=== PATIENT | female | born 1960 | race Caucasian/White ===

== ENCOUNTER 2020-07-02 12:46 | Emergency (ER) | payer MEDICAID ==
[~2020-07-02] VITALS: Ht 157.5 cm; Wt 74.8 kg
--- NOTE | 2020-07-02 12:50 | NUR ---
PATIENT AMBULATED WITH STEADY GAIT TO BED 1.
[2020-07-02 12:57] VITALS: BP 109/71
--- NOTE | 2020-07-02 12:57 | NUR ---
60 Y/O F C/C ABDOMINAL PAIN RUQ TO LUQ, PRESSURE SENSATION, 9/10 PAIN, EATING EXACERBATES, NOTHING ALLEVIATES X 1 DAY. DENIES DYSURIA,NVD. PT NKA. HX GLAUCOMA. NO SX. RX EYE DROPS UNABLE TO RECALL. PT PRESENTS VSS,EUPNIC,AMBULATORY,A/OX4. SIDE RAIL X1.
--- NOTE | 2020-07-02 13:23 | NUR ---
Dr. Russo is evaluating pt at bedside.
[2020-07-02] MEDS: KETOROLAC 60 MG/2 ML VIAL IM ONE (13:29)
[2020-07-02 13:50] VITALS: BP 109/71
--- NOTE | 2020-07-02 13:50 | NUR ---
Patient discharged with v/s stable. Written and verbal after care instructions given and explained. Patient alert, oriented and verbalized understanding of instructions. Ambulatory with steady gait. All questions addressed prior to discharge. ID band removed. Patient advised to follow up with PMD. Rx of MOTRIN,NORCO given. Patient educated on indication of medication including possible reaction and side effects. Opportunity to ask questions provided and answered.
== END 2020-07-02 13:50 | disposition home or self-care (01) ==
LOC: MED 12:46
DX: R10.11 Right upper quadrant pain (principal); H40.9 Unspecified glaucoma
CPT/HCPCS: 81002; 96372; 99283; J1885

== ENCOUNTER 2020-07-22 10:17 | Day surgery (SDC) | payer SELFPAY ==
[2020-07-21 11:22] LABS: EOSINOPHILS # (AUTO) 0.1 K/uL (0-0.4); EOSINOPHILS % (AUTO) 3.3 % (0.0-4.0); HEMATOCRIT 36.9 % (36-48); HEMOGLOBIN 12.4 g/dL (12.0-16.0); LYMPHOCYTES # (AUTO) 1.6 K/uL (2.5-16.5); LYMPHOCYTES % (AUTO) 43.6 % (20.5-51.1); MEAN CORPUSCULAR HEMOGLOBIN 30 pg (27-31); MEAN CORPUSCULAR HGB CONC 34 g/dL (33-37); MEAN CORPUSCULAR VOLUME 90.2 fL (80-94); MONOCYTES # (AUTO) 0.3 K/uL (0.8-1.0); NEUTROPHILS # (AUTO) 1.6 K/uL (1.8-7.7); NEUTROPHILS % (AUTO) 43.1 % (42.2-75.2); PLATELET COUNT (AUTO) 285 K/uL (140-450); RED BLOOD CELL COUNT(AUTO) 4.09 MIL/uL (4.20-5.40); RED CELL DISTRIBUTION WIDTH 13.4 % (11.6-13.7); WHITE BLOOD COUNT (AUTO) 3.8 K/uL (4.8-10.8)
[2020-07-21 12:13] LABS: ANION GAP 12.6 (8-16); CARBON DIOXIDE 27.3 mmol/L (21-32); CREATININE 0.7 mg/dL (0.6-1.3); POTASSIUM 3.9 mmol/L (3.5-5.1); TOTAL BILIRUBIN 0.5 mg/dL (0.0-1.0)
[~2020-07-22] VITALS: Ht 190.5 cm; Wt 73.9 kg
[2020-07-22] MEDS ORDERED: OMEP20TC12 PO (11:45)
[2020-07-22] MEDS ORDERED: LIDOCAINE 1% 500 MG/50 ML VIAL ONE (12:11)
[2020-07-22] MEDS ORDERED: BUPIVACAINE-MPF 0.25% 30 ML VIAL INJ ONE (12:11)
[2020-07-22] MEDS ORDERED: OXYTOCIN 10 UNITS/ML VIAL ONE (12:37)
[2020-07-22] MEDS ORDERED: PROPOFOL 200 MG/20 ML VIAL IV ONE (12:37)
[2020-07-22] MEDS ORDERED: SUCCINYLCHOLINE CHLORIDE 200 MG/10 ML VIAL IVP ONE (12:37)
[2020-07-22] MEDS ORDERED: LIDOCAINE 2% 100 MG/5 ML SYR IVP ONE (12:37)
[2020-07-22] MEDS ORDERED: fentaNYL citrate 0.05 MG/ML VIAL ONE (12:37)
[2020-07-22] MEDS ORDERED: MEPERIDINE 25 MG/ML SYR ONE (12:37)
[2020-07-22] MEDS ORDERED: KETOROLAC 30 MG/ML VIAL ONE (12:37)
[2020-07-22] MEDS ORDERED: ROCURONIUM 50 MG/5 ML VIAL IV ONE (12:37)
[2020-07-22] MEDS ORDERED: ceFAZolin 1,000 MG VIAL ONE (12:37)
[2020-07-22] MEDS ORDERED: SEVOFLURANE 250 ML BTL INH ONE (12:37)
[2020-07-22] MEDS ORDERED: DEXAMETHASONE 4 MG/ML VIAL ONE (12:37)
[2020-07-22] MEDS ORDERED: ONDANSETRON 4 MG/2 ML VIAL ONE (12:37)
[2020-07-22] MEDS ORDERED: NEOSTIGMINE 1:1000 10 MG/10 ML VIAL ONE (12:37)
[2020-07-22] MEDS ORDERED: GLYCOPYRROLATE 0.2 MG/ML VIAL ONE (12:37)
[2020-07-22] MEDS ORDERED: MEPERIDINE 25 MG/ML SYR IVP PRN (13:25)
[2020-07-22] MEDS ORDERED: HYDROmorphone 1 MG/ML AMP IVP PRN ×2 (13:25→13:50)
[2020-07-22] MEDS ORDERED: LACTATED RINGERS 1,000 ML IV SCH (13:25)
[2020-07-22] MEDS ORDERED: oxyCODONE/APAP 5/325 MG 1 TAB TAB PO PRN (13:25)
[2020-07-22] MEDS ORDERED: ONDANSETRON 4 MG/2 ML VIAL IVP PRN (13:25)
[2020-07-22] MEDS ORDERED: diphenhydrAMINE 50 MG/ML VIAL IVP PRN (13:25)
[2020-07-22] MEDS ORDERED: ONDANSETRON 4 MG/2 ML VIAL IV PRN (13:50)
[2020-07-22] MEDS ORDERED: HYDROcodone/APAP 5/325 MG 1 TAB TAB PO PRN (13:50)
[2020-07-22] MEDS ORDERED: MORPHINE SULFATE 4 MG/ML SYR IV PRN (13:50)
[2020-07-22] MEDS ORDERED: ACETAMINOPHEN 325 MG TAB PO PRN (13:50)
[2020-07-22] MEDS ORDERED: MORPHINE SULFATE 2 MG/ML SYR IVP PRN (13:50)
[2020-07-22] MEDS: HYDROmorphone PFS 2 MG/ML SYR ONE ×2 (14:25→14:35)
== END 2020-07-22 16:30 | disposition home or self-care (01) ==
LOC: MMU 10:17 → MDS 10:17
PROVIDERS: ATTEND Surgery
DX: K80.10 Calculus of gallbladder with chronic cholecystitis without obstruction (principal); K21.9 Gastro-esophageal reflux disease without esophagitis; Z79.899 Other long term (current) drug therapy; Z20.828 Contact with and (suspected) exposure to other viral communicable diseases
CPT/HCPCS: 36415; 47562; 71045; 80053; 82374; 85025; 86886; 86900; 86901; J0330; J0690; J1100; J1170; J1885; J2001; J2175; J2405; J2590; J2704; J2710; J3010; J3490; J7030; J7060; J7120; U0003